=== PATIENT | male | born 1955 | race Caucasian/White ===

== ENCOUNTER 2017-05-01 07:42 | Emergency (ER) | payer OTHER ==
[~2017-05-01] VITALS: Ht 172.7 cm; Wt 180.0 kg
[~2017-05-01 07:42] MED LIST: AZEL0.05 OP; DULE100A IN; LEVOTAB10 PO; OMEP20CA3 PO; QNAS80AE; SING10TA32 PO
[2017-05-01] MEDS ORDERED: ASPI325T24 PO (08:12)
[2017-05-01] MEDS ORDERED: LIDVISCBTL (08:12)
[2017-05-01] MEDS ORDERED: ALBU83IN (08:12)
[2017-05-01] MEDS ORDERED: PROAAER10 (08:12)
[2017-05-01] MEDS ORDERED: PENI500T PO (08:12)
[2017-05-01] MEDS: IPRATROPIUM 0.5MG/ALBUTEROL 2.5MG INH SOL UD 3ML (DUONEB)(J7620) NEB PRN ×3 (08:42→08:54)
[2017-05-01] MEDS ORDERED: methylPREDNISolone INJ 125 MG/2 ML VIAL (J2930) IV ONE (08:45)
[2017-05-01 09:02] LABS: BASO # 0.2 K/mm3 (0.0-0.2); BASO % 1.9 % (0.0-1.0); EOS # 0.7 K/mm3 (0.0-0.50); EOS % 7.8 % (0.0-3.0); LARGE UNSTAINED CELL # 0.2 K/mm3 (0.0-0.4); LARGE UNSTAINED CELL % 2.2 % (0.0-4.0); LYMPH # 1.3 K/mm3 (1.5-4.5); LYMPH % 14.9 % (24.0-44.0); MEAN CORPUSCULAR HEMOGLOBIN 31.2 pg (27.0-33.0); MEAN CORPUSCULAR HGB CONC 34.1 g/dl (32.0-36.5); MEAN CORPUSCULAR VOLUME 91.4 fl (80.0-96.0); MONO # 0.7 K/mm3 (0.0-0.8); MONO % 8.4 % (0.0-5.0); NEUTROPHILS # 5.6 K/mm3 (1.8-7.7); NEUTROPHILS % 64.9 % (36.0-66.0); PLATELET COUNT, AUTOMATED 203 k/mm3 (150-450); RED CELL DISTRIBUTION WIDTH 12.9 % (11.5-14.5); WHITE BLOOD COUNT 8.7 K/mm3 (4.0-10.0)
[2017-05-01 09:23] LABS: ALBUMIN 3.9 GM/DL (3.2-5.2); ALBUMIN/GLOBULIN RATIO 0.95 (1.00-1.93); ALKALINE PHOSPHATASE 103 U/L (45-117); ALT/SGPT 24 U/L (12-78); ANION GAP 3 MEQ/L (8-16); AST/SGOT 19 U/L (15-37); BILIRUBIN,DIRECT 0.2 MG/DL (0.0-0.2); BILIRUBIN,TOTAL 1.1 MG/DL (0.2-1.0); BLOOD UREA NITROGEN 12 MG/DL (7-18); CALCIUM LEVEL 8.9 MG/DL (8.5-10.1); CARBON DIOXIDE LEVEL 29 MEQ/L (21-32); CHLORIDE LEVEL 108 MEQ/L (98-107); CREATININE FOR GFR 1.06 MG/DL (0.70-1.30); GLOMERULAR FILTRATION RATE > 60.0 (>56); GLUCOSE, FASTING 90 MG/DL (70-105); POTASSIUM SERUM 3.7 MEQ/L (3.5-5.1); SODIUM LEVEL 140 MEQ/L (136-145)
--- NOTE | 2017-05-01 10:03 | REP ---
Clinical: Cough. Technique: AP and lateral soft tissue neck radiographs. Findings: The airway is patent and normal in the frontal and lateral projections. The surrounding soft tissues are unremarkable. No subcutaneous emphysema, abnormal calcifications or radiodense foreign body appreciated. The osseous structures are intact and normal for age focal degenerative change at the C5-6 level noted. Impression: Essentially normal, age-appropriate soft tissue neck radiographs. Signed by Melvin Randolph MD 05/01/2017 09:55 A
--- NOTE | 2017-05-01 10:04 | REP ---
Clinical: Dyspnea and cough . Comparison: 03/16/2012 . Technique: PA and lateral. Findings: The mediastinum and cardiac silhouette are normal. The lung grover are clear and without acute consolidation, effusion, or pneumothorax. The skeletal structures are intact and normal. Impression: 1. No acute cardiopulmonary process. Signed by Melvin Randolph MD 05/01/2017 09:56 A
[2017-05-01 11:12] VITALS: O2SAT 96
[2017-05-01] MEDS ORDERED: ALBUTEROL SULFATE 2.5 MG/0.5 ML INH NEB SOLN NEB ONE (11:15)
[2017-05-01 11:44] VITALS: BP 121/75
[2017-05-01] MEDS ORDERED: NS 1,000 ML IV ONE (12:15)
[2017-05-01] MEDS ORDERED: PRED50TA PO (12:16)
[2017-05-01] MEDS ORDERED: ALBU83IN INH (12:17)
--- NOTE | 2017-05-03 07:14 | ECGEPIP ---
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
== END 2017-05-01 12:44 | disposition home or self-care (01) ==
LOC: M ED 07:42
DX: J45.901 Unspecified asthma with (acute) exacerbation (principal)
CPT/HCPCS: 70360; 71020; 80048; 80076; 82550; 82553; 83605; 83880; 85025; 87040; 93005; 93041; 94640; 94760; 96374; 99285; J2930

== ENCOUNTER → 2018-04-28 | Outpatient (REF) | payer OTHER | LOC: M LAB REF 10:49 | DX: K21.9 Gastro-esophageal reflux disease without esophagitis (principal) ==

== ENCOUNTER 2018-06-13 12:21 | Day surgery (SDC) | payer OTHER ==
[~2018-06-13 12:21] MED LIST changes: -AZEL0.05 OP; -DULE100A IN; -LEVOTAB10 PO; +LIDOCAINE 2% INJ 100 MG/5 ML SDV (FOR ANES.) As Ordered; -OMEP20CA3 PO; +PROPOFOL 200 MG/20 ML VIAL As Ordered; -QNAS80AE; -SING10TA32 PO
[2018-06-13] MEDS: NS 1,000 ML IV (12:30)
[2018-06-13] MEDS ORDERED: LIDOCAINE 2% INJ 100 MG/5 ML SDV (FOR ANES.) As Ordered (15:28)
[2018-06-13] MEDS ORDERED: PROPOFOL 200 MG/20 ML VIAL As Ordered ×2 (15:32→15:33)
[2018-06-13] MEDS ORDERED: fentaNYL 100 MCG/2 ML INJECTION (J3010) As Ordered (15:33)
== END 2018-06-13 16:20 | disposition home or self-care (01) ==
LOC: M OPP 12:21
DX: D12.5 Benign neoplasm of sigmoid colon (principal); R19.7 Diarrhea, unspecified; K29.70 Gastritis, unspecified, without bleeding; R12 Heartburn; G47.30 Sleep apnea, unspecified; D68.51 Activated protein C resistance; J45.909 Unspecified asthma, uncomplicated; R51 Headache; Z79.899 Other long term (current) drug therapy; Z88.8 Allergy status to other drugs, medicaments and biological substances; Z91.040 Latex allergy status; Z91.013 Allergy to seafood; J33.9 Nasal polyp, unspecified; Z86.718 Personal history of other venous thrombosis and embolism; Z77.018 Contact with and (suspected) exposure to other hazardous metals
CPT/HCPCS: 45385

== ENCOUNTER 2019-03-27 13:06 | Emergency (ER) | payer OTHER ==
[~2019-03-27] VITALS: Ht 172.7 cm; Wt 72.7 kg
[~2019-03-27 13:06] MED LIST changes: +ACIP1TAB PO; +ALBU83IN; +ALBU83IN INH; +ASPI-255 PO; +AZEL0.05 OP; +DULE100A INH; +FLON1SPR; +LEVOTAB10 PO; -LIDOCAINE 2% INJ 100 MG/5 ML SDV (FOR ANES.) As Ordered; +LIDVISCBTL; +OMEP20CA3 PO; +PENI500T PO; +PRED50TA PO; +PROAAER10; -PROPOFOL 200 MG/20 ML VIAL As Ordered; +QNAS80AE; +SING10TA32 PO; +VENTAER INH
[2019-03-27] MEDS ORDERED: SUCR1TAB56 (13:18)
[2019-03-27] MEDS ORDERED: PANT40TA3 (13:18)
[2019-03-27] MEDS ORDERED: NS 1,000 ML IV ONE (14:15)
[2019-03-27] MEDS ORDERED: ONDANSETRON 4MG/2ML VIAL (J2405) IV ONE (14:15)
[2019-03-27] MEDS ORDERED: GI COCKTAIL 50ML BTL(HYOSCYAMINE/MAALOX/LIDOCAINE VISCOUS)(1:3:1) PO ONE ×2 (14:15→17:45)
[2019-03-27 15:09] LABS: BASO # 0.1 10^3/uL (0.0-0.2); BASO % 1.1 % (0.0-1.0); EOS # 0.7 10^3/uL (0.0-0.50); EOS % 10.3 % (0.0-3.0); HEMATOCRIT 46.9 % (42.0-52.0); HEMOGLOBIN 15.3 g/dl (13.5-17.5); LYMPH # 1.7 10^3/uL (1.5-4.5); LYMPH % 23.8 % (24.0-44.0); MEAN CORPUSCULAR HEMOGLOBIN 28.4 pg (27.0-33.0); MEAN CORPUSCULAR HGB CONC 32.6 g/dl (32.0-36.5); MONO # 0.6 10^3/uL (0.0-0.8); MONO % 7.8 % (0.0-5.0); NEUTROPHILS % 56.9 % (36.0-66.0); PLATELET COUNT, AUTOMATED 304 10^3/uL (150-450); RED BLOOD COUNT 5.39 10^6/uL (4.30-6.10); WHITE BLOOD COUNT 7.1 10^3/uL (4.0-10.0)
[2019-03-27 15:47] LABS: INR 0.97
[2019-03-27 15:48] LABS: PARTIAL THROMBOPLASTIN TIME 32.2 SECONDS (25.4-37.6)
[2019-03-27 16:12] LABS: ALBUMIN 4.1 GM/DL (3.2-5.2); ALT/SGPT 21 U/L (12-78); AMYLASE 22 U/L (25-115); BILIRUBIN,DIRECT 0.3 MG/DL (0.0-0.2); BILIRUBIN,TOTAL 1.6 MG/DL (0.2-1.0); BLOOD UREA NITROGEN 14 MG/DL (7-18); CALCIUM LEVEL 9.2 MG/DL (8.8-10.2); CARBON DIOXIDE LEVEL 29 MEQ/L (21-32); CHLORIDE LEVEL 106 MEQ/L (98-107); CK-MB VALUE MASS < 1.0 NG/ML (<3.6); CPK CREATINE PHOSPHOKINASE 112 U/L (39-308); CREATININE FOR GFR 0.91 MG/DL (0.70-1.30); GLOMERULAR FILTRATION RATE > 60.0 (>49); GLUCOSE, FASTING 88 MG/DL (70-100); LIPASE 114 U/L (73-393); MB/CK RELATIVE INDEX 0.89 (< OR =4); POTASSIUM SERUM 4.1 MEQ/L (3.5-5.1); SODIUM LEVEL 140 MEQ/L (136-145); TOTAL PROTEIN 7.6 GM/DL (6.4-8.2); TROPONIN I < 0.02 NG/ML (< 0.10)
[2019-03-27] MEDS ORDERED: ISOVUE-370 76% 100ML VIAL (Q9967) As Ordered ONE (16:20)
--- NOTE | 2019-03-27 17:19 | REP ---
Clinical: Acute epigastric pain. Technique: Axial contrast enhanced images from the lung bases to the pubic symphysis using 100 ml Isovue 370 intravenous contrast material with coronal and sagittal re-formations. Comparison: None. Findings: Lung bases demonstrate stable calcified and noncalcified nodules as compared to chest CT dated 05/29/2016. Liver, spleen, pancreas, gallbladder, bilateral adrenal glands and kidneys are relatively normal. 1 cm hypodensity in the right kidney most compatible with cyst. Small hiatal hernia at the gastroesophageal junction. Small and large bowel without obstruction or acute inflammatory process. Normal terminal ileum identified in the right lower quadrant. Scattered colonic diverticula noted without acute diverticulitis. Pelvis demonstrates normal bladder and age appropriate prostate/seminal vesicles. No ascites. No free air. No adenopathy. Abdominal aorta and vasculature normal and without aneurysm or dissection. Impression: 1. 1 cm right renal hypodensity likely cyst. 2. Small hiatal hernia. 3. No acute abdominopelvic pathology appreciated. No ascites. No adenopathy. No focal inflammatory changes. Electronically Signed by Melvin Randolph MD 03/27/2019 05:11 P
--- NOTE | 2019-03-27 17:23 | REP ---
Clinical: Substernal chest pain. Technique: Axial contrast enhanced images from the thoracic inlet to the upper abdomen using 100 ml Isovue 370 intravenous contrast material with coronal and sagittal re-formations. Comparison: 05/29/2016 Findings: Satisfactory enhancement of the pulmonary vasculature is achieved and no filling defects are identified to suggest pulmonary embolus. Thoracic aorta is normal caliber without aneurysm or dissection. Heart and pericardium are normal. Bilateral lung grover are well aerated and without acute pulmonary parenchymal consolidation or atelectasis. No pleural effusion/reaction. No pneumothorax. No adenopathy. Scattered calcified and noncalcified nodules remains stable and consistent with chronic granulomatous disease. Impression: 1. No evidence for pulmonary embolus. 2. No acute pleuroparenchymal or mediastinal process. 3. Calcified/noncalcified nodules remains stable and consistent with granulomatous disease. Electronically Signed by Melvin Randolph MD 03/27/2019 05:15 P
[2019-03-27] MEDS ORDERED: SUCR1SS PO (17:30)
[2019-03-27] MEDS ORDERED: ONDA4TAB6 PO (17:36)
[2019-03-27] MEDS ORDERED: LIDO2SOL9 PO (17:36)
[2019-03-27 18:00] VITALS: BP 114/74
[2019-03-27] MEDS ORDERED: PROT1TAB2 PO (18:16)
--- NOTE | 2019-03-27 21:07 | ECGEPIP ---
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
--- NOTE | 2019-03-28 18:19 | ED PDOC ---
Post-Departure Follow-Up dr hernandez faxed formal report of ct abd/p for fu Rashid Montiel MD March 28, 2019 18:19
== END 2019-03-27 18:26 | disposition home or self-care (01) ==
LOC: M ED 13:06
DX: K20.8 Other esophagitis (principal); J45.909 Unspecified asthma, uncomplicated; D68.2 Hereditary deficiency of other clotting factors; Z79.899 Other long term (current) drug therapy; Z88.8 Allergy status to other drugs, medicaments and biological substances; Z91.018 Allergy to other foods; Z91.040 Latex allergy status
CPT/HCPCS: 36415; 71275; 74177; 80048; 80076; 82150; 82550; 82553; 83690; 84484; 85025; 85610; 85730; 93005; 93041; 96361; 96374; 99285; J2405; Q9967

== ENCOUNTER → 2019-12-14 | Outpatient (CLI) | payer OTHER ==
[~2019-12-14] MED LIST changes: +CYCL10TA PO; +LIDO2SOL9 PO; +OMEP1CAP73 PO; -OMEP20CA3 PO; +ONDA4TAB6 PO; +PANT40TA3; +PRED20TA PO; +PROT1TAB2 PO; +SUCR1SS PO; +SUCR1TAB56
--- NOTE | 2019-12-15 01:56 | REPVR ---
PROCEDURE INFORMATION: Exam: CT Maxillofacial Without Contrast Exam date and time: 12/14/2019 1:40 PM Age: 64 years old Clinical indication: Condition or disease; Other: Nasal polyp unspecified TECHNIQUE: Imaging protocol: Computed tomography images of the face without contrast. Radiation optimization: All CT scans at this facility use at least one of these dose optimization techniques: automated exposure control; mA and/or kV adjustment per patient size (includes targeted exams where dose is matched to clinical indication); or iterative reconstruction. COMPARISON: CT BRAIN LAB SINUSES 2016-08-31 16:38 FINDINGS: Orbits: Orbits are normal. Globes are unremarkable. Sinuses: Near complete opacification of the paranasal sinuses and upper aspect of the nasal passages, evidence of nasal polyposis. Bones/joints: Hyperostosis of the sinus navarro. Nasal cavity: See above. Soft tissues: Unremarkable. IMPRESSION: Hyperostosis of the sinus navarro. Near complete opacification of the paranasal sinuses and upper aspect of the nasal passages, evidence of nasal polyposis. Electronically signed by: John Paul Fried On 12/15/2019 01:55:40 AM
== END ==
LOC: M RAD 13:31
PROVIDERS: ATTEND Otolaryngology
DX: J33.9 Nasal polyp, unspecified (principal)

== ENCOUNTER 2019-12-18 17:33 | Emergency (ER) | payer OTHER ==
[~2019-12-18] VITALS: Ht 172.7 cm; Wt 73.0 kg
[~2019-12-18 17:33] MED LIST changes: -CYCL10TA PO; -PRED20TA PO
--- NOTE | 2019-12-18 19:17 | REP ---
Clinical: Trauma. Technique: Frontal view of the chest with four views of the left hemithorax. Findings: Frontal view of the chest demonstrates no acute cardiopulmonary process. Multiple views of the left hemithorax demonstrates no obvious acute rib fracture or pathology. Impression: No obvious acute or displaced rib fracture identified. Electronically Signed by Melvin Randolph MD 12/18/2019 07:08 P
[2019-12-18] MEDS ORDERED: CYCL10TA PO (20:10)
[2019-12-18] MEDS ORDERED: PRED20TA PO (20:10)
[2019-12-18 20:15] VITALS: BP 132/79
[2019-12-18] MEDS ORDERED: CYCLOBENZAPRINE 10 MG TAB PO ONE (20:30)
[2019-12-18] MEDS ORDERED: predniSONE 20 MG TAB PO ONE (20:30)
== END 2019-12-18 20:29 | disposition home or self-care (01) ==
LOC: M ED 17:33
DX: S29.012A Strain of muscle and tendon of back wall of thorax, initial encounter (principal); X50.9XXA Other and unspecified overexertion or strenuous movements or postures, initial encounter; Y92.9 Unspecified place or not applicable; Y93.9 Activity, unspecified; Y99.9 Unspecified external cause status; K21.9 Gastro-esophageal reflux disease without esophagitis; Z79.51 Long term (current) use of inhaled steroids; Z79.899 Other long term (current) drug therapy; Z88.6 Allergy status to analgesic agent; Z88.8 Allergy status to other drugs, medicaments and biological substances; Z91.013 Allergy to seafood; Z91.040 Latex allergy status

== ENCOUNTER 2021-07-23 13:33 | Emergency (ER) | payer OTHER ==
[~2021-07-23] VITALS: Ht 172.7 cm; Wt 77.3 kg
[2021-07-23 13:33] VITALS: BP 128/73
[~2021-07-23 13:33] MED LIST changes: +CYCL-707 PO; +PANT40TA29; -PANT40TA3; +PRED20TA PO
[2021-07-23 14:40] LABS: BASO # 0.1 10^3/uL (0.0-0.2); BASO % 0.7 % (0.0-1.0); EOS # 0.4 10^3/uL (0.0-0.5); EOS % 4.9 % (0.0-3.0); HEMATOCRIT 45.7 % (42.0-52.0); HEMOGLOBIN 15.2 g/dl (13.5-17.5); LYMPH # 2.1 10^3/uL (1.5-5.0); LYMPH % 28.7 % (24.0-44.0); MEAN CORPUSCULAR HGB CONC 33.3 g/dl (32.0-36.5); MEAN CORPUSCULAR VOLUME 90.1 fl (80.0-96.0); MONO # 0.6 10^3/uL (0.0-0.8); MONO % 8.4 % (2.0-8.0); NEUTROPHILS # 4.1 10^3/uL (1.5-8.5); PLATELET COUNT, AUTOMATED 258 10^3/uL (150-450); RED BLOOD COUNT 5.07 10^6/uL (4.30-6.10); WHITE BLOOD COUNT 7.1 10^3/uL (4.0-10.0)
[2021-07-23 15:12] LABS: BLOOD UREA NITROGEN 19 MG/DL (7-18); CARBON DIOXIDE LEVEL 27 MEQ/L (21-32); CHLORIDE LEVEL 108 MEQ/L (98-107); CK-MB VALUE MASS < 1.0 NG/ML (<3.6); CPK CREATINE PHOSPHOKINASE 85 U/L (39-308); CREATININE FOR GFR 0.78 MG/DL (0.70-1.30); GLOMERULAR FILTRATION RATE > 60.0 (>49); GLUCOSE, FASTING 113 MG/DL (70-100); MB/CK RELATIVE INDEX 1.18 (< OR =4); SODIUM LEVEL 142 MEQ/L (136-145); TROPONIN I < 0.02 NG/ML (< 0.10)
--- NOTE | 2021-07-23 16:14 | REP ---
INDICATION: CHEST PAIN. COMPARISON: 12/18/2019. TECHNIQUE: Single portable AP view of the chest was performed. FINDINGS: There is no acute infiltrate or pulmonary edema. Lungs are clear. The heart is not significantly enlarged. The mediastinal silhouette is unremarkable. The visualized osseous structures are intact. IMPRESSION: No acute pulmonary disease. <Electronically signed by Cody Castrejon > 07/23/21 [id number]
--- NOTE | 2021-07-24 00:17 | ECGEPIP ---
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
== END 2021-07-23 17:26 | disposition left against medical advice (07) ==
LOC: M ED 13:33
DX: Z53.29 Procedure and treatment not carried out because of patient's decision for other reasons (principal)

== ENCOUNTER → 2022-09-13 | Outpatient (CLI) | payer MEDICARE, OTHER ==
[~2022-09-13] MED LIST changes: +ALBU2.5V10; +ALBU2.5V10 INH; -ALBU83IN; -ALBU83IN INH; +ISOVUE-370 76% 100ML VIAL As Ordered ONE
== END ==
LOC: M RAD 09:34
PROVIDERS: ATTEND Physician Assistant
DX: R91.8 Other nonspecific abnormal finding of lung field (principal); I71.22 Aneurysm of the aortic arch, without rupture
CPT/HCPCS: 71260; Q9967

== ENCOUNTER → 2022-10-11 | Outpatient (CLI) | payer MEDICARE, OTHER ==
[~2022-10-11] MED LIST changes: -ISOVUE-370 76% 100ML VIAL As Ordered ONE
== END ==
LOC: M PLARAD 13:09
PROVIDERS: ATTEND Physician Assistant
DX: R91.1 Solitary pulmonary nodule (principal)
CPT/HCPCS: 78815; A9552

== ENCOUNTER → 2023-03-24 | Outpatient (CLI) | payer MEDICARE, OTHER ==
[~2023-03-24] MED LIST changes: -DULE100A INH; +LIDO2SOBTL PO; -LIDO2SOL9 PO; +MOME13HF8 INH; +MONT-5 PO; -SING10TA32 PO
== END ==
LOC: M WHC 13:17
PROVIDERS: ATTEND Physician Assistant
DX: N28.1 Cyst of kidney, acquired (principal)

== ENCOUNTER → 2023-09-15 | Outpatient (REF) | payer MEDICARE, OTHER ==
[2023-09-15 14:04] LABS: BASO # 0.1 10^3/uL (0.0-0.2); BASO % 0.8 % (0.0-1.0); EOS # 0.1 10^3/uL (0.0-0.5); EOS % 1.9 % (0.0-3.0); HEMATOCRIT 49.5 % (42.0-52.0); LYMPH # 1.9 10^3/uL (1.5-5.0); LYMPH % 29.3 % (24.0-44.0); MEAN CORPUSCULAR HEMOGLOBIN 29.7 pg (27.0-33.0); MEAN CORPUSCULAR HGB CONC 32.3 g/dl (32.0-36.5); MONO # 0.6 10^3/uL (0.0-0.8); MONO % 9.8 % (2.0-8.0); NEUTROPHILS # 3.7 10^3/uL (1.5-8.5); NEUTROPHILS % 57.7 % (36.0-66.0); PLATELET COUNT, AUTOMATED 237 10^3/uL (150-450); RED BLOOD COUNT 5.38 10^6/uL (4.30-6.10); WHITE BLOOD COUNT 6.4 10^3/uL (4.0-10.0)
[2023-09-15 14:08] LABS: LIPASE 34 U/L (12-53)
[2023-09-15 14:10] LABS: ALBUMIN 4.1 G/DL (3.2-5.2); ALKALINE PHOSPHATASE 87 U/L (46-116); ALT/SGPT 33 U/L (7.0-40); AST/SGOT 23 U/L (<34); BILIRUBIN,TOTAL 1.2 MG/DL (0.3-1.2); BLOOD UREA NITROGEN 18 MG/DL (9-23); CARBON DIOXIDE LEVEL 27 MMOL/L (20-31); CHLORIDE LEVEL 107 MMOL/L (98-107); CREATININE FOR GFR 0.88 MG/DL (0.70-1.30); GLOMERULAR FILTRATION RATE > 60.0 (>49); GLUCOSE, FASTING 85 MG/DL (74-106); POTASSIUM SERUM 4.9 MMOL/L (3.5-5.1); SODIUM LEVEL 143 MMOL/L (136-145)
== END ==
LOC: M PLALAB 12:45
PROVIDERS: ATTEND Physician Assistant
DX: R10.2 Pelvic and perineal pain (principal)

== ENCOUNTER → 2023-09-19 | Outpatient (CLI) | payer MEDICARE, OTHER ==
[~2023-09-19] MED LIST changes: +GASTROGRAFIN SOLUTION 30ML ONE; +ISOVUE-370 76% 100ML VIAL ONE
== END ==
LOC: M PLAIMG 12:05
PROVIDERS: ATTEND Physician Assistant
DX: R10.2 Pelvic and perineal pain (principal); R91.8 Other nonspecific abnormal finding of lung field
CPT/HCPCS: 74177; Q9963; Q9967

== ENCOUNTER → 2023-09-25 | Outpatient (CLI) | payer MEDICARE, OTHER ==
[~2023-09-25] MED LIST changes: -GASTROGRAFIN SOLUTION 30ML ONE; -ISOVUE-370 76% 100ML VIAL ONE; +LIDO100S29 PO; -LIDO2SOBTL PO
== END ==
LOC: M SLEEP 20:00
PROVIDERS: ATTEND Nurse Practitioner Family
DX: G47.33 Obstructive sleep apnea (adult) (pediatric) (principal)

== ENCOUNTER → 2024-01-31 | Outpatient (REF) | payer MEDICARE, OTHER | LOC: M SFHCDERM 18:20 | PROVIDERS: ATTEND Physician Assistant | DX: L82.1 Other seborrheic keratosis (principal) ==

== ENCOUNTER 2024-05-01 10:18 | Day surgery (SDC) | payer MEDICARE, OTHER ==
[~2024-05-01] VITALS: Ht 172.7 cm; Wt 78.9 kg
[~2024-05-01 10:18] MED LIST changes: +DUPI300I; +GNPTAB36 PO; +NS 1,000 ML IV ONE; +ONDA-282 PO; -ONDA4TAB6 PO; -PANT40TA29; +PANT40TA29 PO; +Q NASAL
[2024-05-01] MEDS ORDERED: LIDOCAINE 2% 100MG/5ML SDV (FOR ANES.) As Ordered ONE (11:54)
[2024-05-01] MEDS ORDERED: propofoL 200 MG/20 ML VIAL As Ordered ONE (11:54)
[2024-05-01] MEDS ORDERED: GLYCOPYRROLATE INJ 0.2 MG/ML 2 ML VIAL As Ordered ONE (11:54)
[2024-05-01 12:45] VITALS: TEMP 97.7
[2024-05-01 13:04] VITALS: BP 118/73; O2SAT 98
== END 2024-05-01 13:12 | disposition home or self-care (01) ==
LOC: M OPP 10:18
PROVIDERS: ATTEND Internal Medicine Gastroenterology
DX: Z12.11 Encounter for screening for malignant neoplasm of colon (principal); Z86.010 Personal history of colon polyps; D12.3 Benign neoplasm of transverse colon; K64.8 Other hemorrhoids; K57.30 Diverticulosis of large intestine without perforation or abscess without bleeding; K31.7 Polyp of stomach and duodenum; K22.2 Esophageal obstruction; Z98.890 Other specified postprocedural states; R10.13 Epigastric pain; G35 Multiple sclerosis; G47.30 Sleep apnea, unspecified; Z99.89 Dependence on other enabling machines and devices; Z79.620 Long term (current) use of immunosuppressive biologic; Z79.899 Other long term (current) drug therapy; Z88.6 Allergy status to analgesic agent; Z91.013 Allergy to seafood; Z91.040 Latex allergy status